=== PATIENT | male | born 1980 ===

== ENCOUNTER 2018-08-16 15:24 | Emergency (ER) | payer SELFPAY ==
[2018-08-16 15:43] VITALS: PULSE 65; RESP 16; TEMP 98.7; O2SAT 95
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
[2018-08-16 17:06] VITALS: BP 144/78
== END 2018-08-16 17:19 | disposition home or self-care (01) ==
LOC: H.ER 15:24
DX: R51 Headache (principal); M54.2 Cervicalgia; S02.2XXA Fracture of nasal bones, initial encounter for closed fracture; S09.90XA Unspecified injury of head, initial encounter; W03.XXXA Other fall on same level due to collision with another person, initial encounter